=== PATIENT | female | born 1935 | race Caucasian/White ===

== ENCOUNTER 2017-07-05 09:04 | Emergency (ER) | payer OTHER ==
[~2017-07-05] VITALS: Ht 154.9 cm; Wt 73.5 kg
[2017-07-05] MEDS ORDERED: XANAX XR2 MG PO (09:11)
[2017-07-05] MEDS ORDERED: PRADAXA150 MG (09:11)
[2017-07-05] MEDS ORDERED: SIMVASTATIN20 MG (09:12)
[2017-07-05] MEDS ORDERED: OXYBUTYNIN CHLOR5 MG PO (09:12)
[2017-07-05] MEDS ORDERED: COZAAR50 MG (09:13)
[2017-07-05] MEDS ORDERED: LASIX20 MG (09:13)
[2017-07-05] MEDS ORDERED: CALCIUM + D SO1 EACH (09:13)
[2017-07-05] MEDS ORDERED: BIOTIN1000 MCG (09:13)
[2017-07-05] MEDS ORDERED: CENTRUM SILVER1 EAC2 (09:14)
== END 2017-07-05 14:01 | disposition home or self-care (01) ==
LOC: ER 09:04 → CPU-OBS 09:06 → ER 09:06
DX: I48.91 Unspecified atrial fibrillation (principal); R07.89 Other chest pain; R42 Dizziness and giddiness

== ENCOUNTER 2018-04-04 06:46 | Emergency (ER) | payer OTHER ==
[~2018-04-04] VITALS: Ht 152.4 cm; Wt 68.0 kg
[~2018-04-04 06:46] MED LIST: BIOTIN1000 MCG; CALCIUM + D SO1 EACH; CENTRUM SILVER1 EAC2; COZAAR50 MG; LASIX20 MG; OXYBUTYNIN CHLOR5 MG PO; PRADAXA150 MG; SIMVASTATIN20 MG; XANAX XR2 MG PO
== END 2018-04-04 12:24 | disposition home or self-care (01) ==
LOC: ER 06:46
DX: R07.89 Other chest pain (principal); F06.4 Anxiety disorder due to known physiological condition; G47.00 Insomnia, unspecified